=== PATIENT | female | born 1990 | race Caucasian/White ===

== ENCOUNTER 2019-08-24 23:14 | Emergency (ER) | payer MEDICAID ==
--- NOTE | 2019-08-24 23:21 | ERPHSYRPT ---
- History of Present Illness Time Seen by Provider: 08/24/19 23:16 Source: patient, police Exam Limitations: no limitations Physician History: A 29-year-old white female who was brought into the emergency department for medical clearance for transfer to correction. Patient has no specific complaints. Patient was brought into the emergency department because there was initial discussion with the Police Department that the patient had stated that she was going to run out in front of traffic. However, patient denies ever saying this and she states she has not homicidal or suicidal. She states she does not want to kill herself. Patient is being taken to the correction because of an outstanding warrant. Patient denies chest pain she denies shortness of breath she denies abdominal pain. She has no urinary complaints and has no vaginal discharge. She has no nausea vomiting or diarrhea. Timing/Duration: today Severity: mild Associated Symptoms: denies symptoms Travel Risk - International Travel Have you traveled outside of the country in past 3 weeks: No - Coronavirus Screening Are you exhibiting any of the following symptoms?: No Close contact with a COVID-19 positive Pt in past 14-21 Days: No - Review of Systems Constitutional: No Symptoms Eyes: No Symptoms Ears, Nose, & Throat: No Symptoms Respiratory: No Symptoms Cardiac: No Symptoms Abdominal/Gastrointestinal: No Symptoms Genitourinary Symptoms: No Symptoms Musculoskeletal: No Symptoms Skin: No Symptoms Neurological: No Symptoms Psychological: Drug Abuse (History in the past), No Suicidal Ideations, No Homic idal Ideations Endocrine: No Symptoms Hematologic/Lymphatic: No Symptoms Immunological/Allergic: No Symptoms All Other Systems: Reviewed and Negative - Past Medical History Pertinent Past Medical History: Yes Neurological History: No Pertinent History ENT History: No Pertinent History Cardiac History: No Pertinent History Respiratory History: No Pertinent History Endocrine Medical History: No Pertinent History Musculoskeletal History: No Pertinent History GI Medical History: No Pertinent History History: No Pertinent History Psycho-Social History: No Pertinent History Female Reproductive Disorders: No Pertinent History - Past Surgical History Past Surgical History: Yes Neuro Surgical History: No Pertinent History Cardiac: No Pertinent History Respiratory: No Pertinent History Gastrointestinal: No Pertinent History Genitourinary: No Pertinent History Musculoskeletal: No Pertinent History Female Surgical History: No Pertinent History - Physical Exam General Appearance: no apparent distress, alert, No anxiety Eye Exam: PERRL/EOMI, eyes nml inspection Ears, Nose, Throat Exam: normal ENT inspection, moist mucous membranes Neck Exam: normal inspection, non-tender, supple, full range of motion Respiratory Exam: normal breath sounds, lungs clear, airway intact, No chest tenderness, No respiratory distress Cardiovascular Exam: regular rate/rhythm, normal heart sounds, normal peripheral pulses Gastrointestinal/Abdomen Exam: soft, normal bowel sounds, No tenderness Pelvic Exam: not done Rectal Exam: not done Back Exam: normal inspection, normal range of motion, No CVA tenderness, No vertebral tenderness Extremity Exam: normal inspection, normal range of motion, pelvis stable Neurologic Exam: alert, oriented x 3, cooperative, natural sciences professor II-XII nml as tested, normal mood/affect, nml cerebellar function, nml station & gait, sensation nml Skin Exam: normal color, warm, dry Lymphatic Exam: No adenopathy SpO2 Interpretation: normal O2 Delivery: Room Air - Course Nursing assessment & vital signs reviewed: Yes - Progress Progress: unchanged Counseled pt/family regarding: diagnosis, need for follow-up - Departure Departure Disposition: Nursing Home/Half-Way Clinical Impression: Medical clearance for incarceration Condition: Stable Critical Care Time: No
[2019-08-25 01:02] VITALS: BP 122/82; PULSE 71; O2SAT 97
== END 2019-08-25 01:00 | disposition home or self-care (01) ==
LOC: ED 23:14
DX: Z02.89 Encounter for other administrative examinations (principal)
CPT/HCPCS: 84703; 99283

== ENCOUNTER 2021-05-04 23:15 | Emergency (ER) | payer OTHER ==
--- NOTE | 2021-05-04 23:34 | ERPHSYRPT ---
- History of Present Illness Time Seen by Provider: 05/04/21 23:34 Source: patient Exam Limitations: no limitations Physician History: This is a 30-year-old white female patient of Dr. Casillas who has significant anxiety issues on Effexor and is also on Adderall. Approximately 2 weeks ago, the patient's Effexor was doubled in dosing per patient. Since that time patient has been more anxious, she is having palpitations, she is concerned about possible blood clots in her leg, and she has dizziness intermittently. Patient does not have chest pain. She is not short of breath. Patient states she has a history of sinus tachycardia. Timing/Duration: week(s) Severity: mild (1 to 2 weeks to moderate) Associated Symptoms: other (Dizziness, palpitations), No shortness of breath, No chest pain Allergies/Adverse Reactions: No Known Drug Allergies Allergy (Verified 05/04/21 23:28) Home Medications: Dextroamphetamine/Amphetamine [Adderall 10 mg Tablet] 20 mg PO BID 05/04/21 [History] Venlafaxine HCl [Venlafaxine HCl ER] 150 mg PO DAILY 05/04/21 [History] Hx Tetanus, Diphtheria Vaccination/Date Given: Yes Hx Influenza Vaccination/Date Given: Yes Travel Risk - International Travel Have you traveled outside of the country in past 3 weeks: No - Coronavirus Screening Are you exhibiting any of the following symptoms?: No Close contact with a COVID-19 positive Pt in past 14-21 Days: No - Review of Systems Constitutional: No Symptoms Eyes: No Symptoms Ears, Nose, & Throat: No Symptoms Respiratory: No Symptoms, No Dyspnea Cardiac: Palpitations, No Chest Pain Abdominal/Gastrointestinal: No Symptoms Genitourinary Symptoms: No Symptoms Musculoskeletal: No Symptoms Skin: No Symptoms Neurological: No Symptoms Psychological: No Symptoms, Anxiety Endocrine: No Symptoms Hematologic/Lymphatic: No Symptoms Immunological/Allergic: No Symptoms All Other Systems: Reviewed and Negative - Past Medical History Pertinent Past Medical History: Yes Neurological History: No Pertinent History ENT History: No Pertinent History Cardiac History: No Pertinent History Respiratory History: No Pertinent History Endocrine Medical History: No Pertinent History Musculoskeletal History: No Pertinent History GI Medical History: No Pertinent History History: No Pertinent History Psycho-Social History: No Pertinent History Female Reproductive Disorders: No Pertinent History - Past Surgical History Past Surgical History: Yes Neuro Surgical History: No Pertinent History Cardiac: No Pertinent History Respiratory: No Pertinent History Gastrointestinal: No Pertinent History Genitourinary: No Pertinent History Musculoskeletal: No Pertinent History Female Surgical History: No Pertinent History Other Surgical History: Laproscopic sx on uterus - Social History Smoking Status: Never smoker Exposure to second hand smoke: No Drug Use: none Patient Lives Alone: Yes - Nursing Vital Signs Nursing Vital Signs: Initial Vital Signs Temperature 98.5 F 05/04/21 23:30 Pulse Rate 106 H 05/04/21 23:30 Respiratory Rate 18 05/04/21 23:30 Blood Pressure 151/85 05/04/21 23:30 O2 Sat by Pulse Oximetry 99 05/04/21 23:30 Pain Scale Pain Intensity 6 - Physical Exam General Appearance: no apparent distress, alert, anxiety Eye Exam: PERRL/EOMI Ears, Nose, Throat Exam: normal ENT inspection, moist mucous membranes Neck Exam: normal inspection, non-tender, supple, full range of motion Respiratory Exam: normal breath sounds, lungs clear, airway intact, No chest tenderness, No respiratory distress Cardiovascular Exam: tachycardia (Mild) Gastrointestinal/Abdomen Exam: soft, normal bowel sounds, No tenderness Pelvic Exam: not done Rectal Exam: not done Back Exam: normal inspection, normal range of motion, No CVA tenderness, No vertebral tenderness Extremity Exam: normal inspection, normal range of motion, pelvis stable, other (Strong palpable pedal pulses bilaterally) Neurologic Exam: alert, oriented x 3, cooperative, precision grinder II-XII nml as tested, nml cerebellar function, nml station & gait, sensation nml, other (Anxious) Skin Exam: normal color, warm, dry Lymphatic Exam: No adenopathy O2 Delivery: Room Air - Course Nursing assessment & vital signs reviewed: Yes EKG Interpreted by Me: RATE (105), Sinus Tach, Left [place] Deviation (Borderline), Other (Today's EKG states consider inferior injury with question of ST elevation in the inferior leads. However, I do not see ST elevation in the inferior leads. Will repeat EKG.) Ordered Tests: Active Orders 24 hr Category Date Time Status D-DIMER QUANTITATIVE Stat Lab 05/05/21 00:25 Completed TROPONIN Q3H Lab 05/05/21 00:25 Completed TROPONIN Q3H Lab 05/05/21 03:15 Ordered TROPONIN Q3H Lab 05/05/21 06:15 Ordered TROPONIN Q3H Lab 05/05/21 09:15 Ordered TROPONIN Q3H Lab 05/05/21 12:15 Ordered Medication Summary Discontinued Medications Generic Name Dose Route Start Last Admin Trade Name Melvina PRN Reason Stop Dose Admin Lorazepam 1 mg 05/05/21 00:11 05/05/21 00:15 Lorazepam 2 Mg/1 Ml 2 Mg Vial IM 05/05/21 00:12 1 mg STAT ONE Administration Lorazepam Confirm 05/05/21 00:13 Lorazepam 2 Mg/1 Ml 2 Mg Vial Administered 05/05/21 00:14 Dose 2 mg .ROUTE .STK-MED ONE Lab/Rad Data: Laboratory Results 05/05/21 05/05/21 Range/Units 00:25 00:25 D-Dimer 248 (215-500) ng/mL Troponin I < 0.012 (0.000-0.034) ng/mL - Progress Progress: improved, pain not gone completely, re-examined Progress Note: 05/05/21 01:07 Repeat twelve-lead EKG at 1:03 AM on 05/05/2021 shows normal sinus rhythm with heart rate of 96 bpm. Left axis deviation. There is no acute ischemic changes noted. ST elevation is probably normal with early repolarization pattern. Patient has no chest pain and is not short of breath. Counseled pt/family regarding: lab results, diagnosis, need for follow-up - Departure Departure Disposition: Home Clinical Impression: High blood pressure Condition: Stable Critical Care Time: No Referrals: CECILIA CASILLAS [Primary Care Provider] - Follow up/PCP as directed Additional Instructions: Do not stop your Effexor completely. You may continue the same new dosing over the weekend and then call Dr. Casillas and inform him of your concerns on 05/07/2021. Or decrease your Effexor back to the normal dose you are on prior to the change then call Dr. Madrid's office on 05/07/2021 for further recommendations and management
[2021-05-05] MEDS ORDERED: Ativan 2 MG/1 ML VIAL IM ONE (00:11)
[2021-05-05] MEDS ORDERED: Ativan 2 MG/1 ML VIAL ONE (00:13)
[2021-05-05 01:09] VITALS: BP 134/84; O2SAT 96
[2021-05-05 01:10] VITALS: PULSE 103
== END 2021-05-05 01:21 | disposition home or self-care (01) ==
LOC: ED 23:15
DX: R03.0 Elevated blood-pressure reading, without diagnosis of hypertension (principal); F41.9 Anxiety disorder, unspecified; R00.2 Palpitations; R42 Dizziness and giddiness; Z79.899 Other long term (current) drug therapy
CPT/HCPCS: 36415; 84484; 85379; 93005; 96372; 99284; J2060

== ENCOUNTER 2021-05-16 15:06 | Emergency (ER) | payer OTHER ==
--- NOTE | 2021-05-16 15:45 | ERPHSYRPT ---
- History of Present Illness Time Seen by Provider: 05/16/21 15:11 Historian: patient Exam Limitations: no limitations Patient Subjective Stated Complaint: " I had a ERCP on Friday in [facility] by Dr. Paulino and I started having abdominal pain off and on since then. And now my pain is so bad". Triage Nursing Assessment: Pt presents to ER with complaints of LUQ pain that radiates to left flank region. Pt states she believes it is her pancreas. Pt had ERCP on Friday and has intermittent pain ever since that has continously got worse. Pt is alert and oriented x3. Skin is flushed, warm, and dry. Respirations are easy. Abdomen is soft but tender upon exam. Pt complains about nausea and stated vomited green bile 2 days ago. Pt had regular BM today. Physician History: 30 years old female with history of alcohol abuse in the past and recent issues with CBD, ERCP with stent placement last week presented in the ER with increasing pain upper abdomen with nausea and dry heaving for the last 5 days. Pain is moderate to severe intensity, sharp nature without any significant aggravating or relieving factors. No fever chills or abdominal distention reported. Timing/Duration: day(s) (5), gradual onset, worse Activities at Onset: rest Quality: sharpness Abdominal Pain Onset Location: LUQ, LLQ, epigastric Pain Radiation: back Severity of Pain-Max: moderate Severity of Pain-Current: moderate Modifying Factors: Improves With: nothing Associated Symptoms: nausea Previous symptoms: no prior history Allergies/Adverse Reactions: No Known Drug Allergies Allergy (Verified 05/16/21 15:30) Home Medications: Dextroamphetamine/Amphetamine [Adderall 10 mg Tablet] 20 mg PO BID 05/04/21 [History] Venlafaxine HCl [Venlafaxine HCl ER] 150 mg PO DAILY 05/04/21 [History] Hx Tetanus, Diphtheria Vaccination/Date Given: No Hx Influenza Vaccination/Date Given: No Hx Pneumococcal Vaccination/Date Given: No Immunizations Up to Date: No Travel Risk - International Travel Have you traveled outside of the country in past 3 weeks: No - Coronavirus Screening Are you exhibiting any of the following symptoms?: No Close contact with a COVID-19 positive Pt in past 14-21 Days: No - Vaccine Status Have you recieved a Covid-19 vaccination: No - Review of Systems Constitutional: No Symptoms Eyes: No Symptoms Ears, Nose, & Throat: No Symptoms Respiratory: No Symptoms Cardiac: No Symptoms Abdominal/Gastrointestinal: Abdominal Pain, Nausea Genitourinary Symptoms: No Symptoms Musculoskeletal: No Symptoms Skin: No Symptoms Neurological: No Symptoms Psychological: No Symptoms Endocrine: No Symptoms Hematologic/Lymphatic: No Symptoms Immunological/Allergic: No Symptoms - Past Medical History Pertinent Past Medical History: Yes Neurological History: No Pertinent History ENT History: No Pertinent History Cardiac History: No Pertinent History, Other Respiratory History: No Pertinent History Endocrine Medical History: No Pertinent History Musculoskeletal History: No Pertinent History GI Medical History: Pancreatitis History: No Pertinent History Psycho-Social History: Anxiety, Attention Deficit Disorder, Depression Female Reproductive Disorders: No Pertinent History - Past Surgical History Past Surgical History: Yes Neuro Surgical History: No Pertinent History Cardiac: No Pertinent History Respiratory: No Pertinent History Gastrointestinal: No Pertinent History Genitourinary: No Pertinent History Musculoskeletal: No Pertinent History Female Surgical History: No Pertinent History Other Surgical History: Laproscopic sx on uterus, ERCP - Social History Smoking Status: Current every day smoker Exposure to second hand smoke: No Drug Use: none Patient Lives Alone: No - Female History Hx Last Menstrual Period: 05/11/21 Hx Now: No - Nursing Vital Signs Nursing Vital Signs: Initial Vital Signs Temperature 97.8 F 05/16/21 15:23 Pulse Rate 101 H 05/16/21 15:23 Respiratory Rate 22 05/16/21 15:23 Blood Pressure 144/74 05/16/21 15:23 O2 Sat by Pulse Oximetry 100 05/16/21 15:23 Pain Scale Pain Intensity 2 - Physical Exam General Appearance: no apparent distress, alert Eye Exam: PERRL/EOMI Ears, Nose, Throat Exam: normal ENT inspection, pharynx normal Neck Exam: normal inspection, non-tender, supple, full range of motion Respiratory Exam: normal breath sounds, lungs clear Cardiovascular Exam: regular rate/rhythm, normal heart sounds Gastrointestinal/Abdomen Exam: soft, normal bowel sounds, tenderness (upper abd pain ), guarding Back Exam: normal inspection, normal range of motion Extremity Exam: normal inspection, normal range of motion Neurologic Exam: alert, oriented x 3, cooperative, fountain supervisor II-XII nml as tested Skin Exam: normal color SpO2 Interpretation: normal SpO2: 100 O2 Delivery: Room Air Ordered Tests: Active Orders 24 hr Category Date Time Status IV Insertion STAT Care 05/16/21 15:41 Active NPO (ED) STAT Care 05/16/21 15:41 Active ABDOMEN AND PELVIS W CONTRAST [CT] Stat Exams 05/16/21 16:47 Completed AMYLASE Stat Lab 05/16/21 15:45 Completed CBC W DIFF Stat Lab 05/16/21 15:45 Completed CMP Stat Lab 05/16/21 15:45 Completed LIPASE Stat Lab 05/16/21 15:45 Completed Lactic Acid Stat Lab 05/16/21 15:53 Completed PROTIME WITH INR Stat Lab 05/16/21 15:45 Completed UA W/RFX UR CULTURE Stat Lab 05/16/21 15:47 Completed Medication Summary Discontinued Medications Generic Name Dose Route Start Last Admin Trade Name Freq PRN Reason Stop Dose Admin Sodium Chloride 1,000 mls @ 999 mls/hr 05/16/21 15:41 05/16/21 16:53 Sodium Chloride 0.9% 1000 Ml IV 05/16/21 16:41 Infused .Q1H1M STA Infusion Sodium Chloride Confirm 05/16/21 15:48 Sodium Chloride 0.9% 1000 Ml Administered 05/16/21 15:49 Dose 1,000 mls @ ud .ROUTE .STK-MED ONE Morphine Sulfate 4 mg 05/16/21 15:41 05/16/21 15:52 Morphine Sulfate 4 Mg/Ml Injection IV 05/16/21 15:42 4 mg STAT ONE Administration Morphine Sulfate Confirm 05/16/21 15:48 Morphine Sulfate 4 Mg/Ml Injection Administered 05/16/21 15:49 Dose 4 mg .ROUTE .STK-MED ONE Ondansetron HCl 4 mg 05/16/21 15:41 05/16/21 15:52 Ondansetron Hcl 4 Mg/2 Ml Vial IV 05/16/21 15:42 4 mg STAT ONE Administration Ondansetron HCl Confirm 05/16/21 15:47 Ondansetron Hcl 4 Mg/2 Ml Vial Administered 05/16/21 15:48 Dose 4 mg .ROUTE .STK-MED ONE Pantoprazole Sodium 40 mg 05/16/21 15:41 05/16/21 15:52 Pantoprazole 40 Mg Vial IV 05/16/21 15:42 40 mg STAT ONE Administration Pantoprazole Sodium Confirm 05/16/21 15:47 Pantoprazole 40 Mg Vial Administered 05/16/21 15:48 Dose 40 mg IV .STK-MED ONE Lab/Rad Data: Laboratory Result Diagrams 05/16/21 15:45 05/16/21 15:45 Laboratory Results 05/16/21 05/16/21 05/16/21 Range/Units 15:53 15:47 15:45 WBC (4.0-10.5) K/mm3 RBC (4.1-5.4) M/mm3 Hgb (12.0-16.0) gm/dl Hct (35-47) % MCV (78-100) fl MCH (26-32) pg MCHC (32-36) g/dl RDW (11.5-14.0) % Plt Count (150-450) K/mm3 MPV (7.5-11.0) fl Gran % (36.0-66.0) % Eos # (Auto) (0-0.5) Absolute Lymphs (auto) (1.0-4.6) Absolute Monos (auto) (0.0-1.3) Lymphocytes % (24.0-44.0) % Monocytes % (0.0-12.0) % Eosinophils % (0.00-5.0) % Basophils % (0.0-0.4) % Absolute Granulocytes (1.4-6.9) Basophils # (0-0.4) PT 12.9 H (9.4-12.5) SECONDS INR 1.09 (0.8-3.0) Sodium (137-145) mmol/L Potassium (3.5-5.1) mmol/L Chloride (98-107) mmol/L Carbon Dioxide (22-30) mmol/L Anion Gap (5-15) MEQ/L BUN (7-17) mg/dL Creatinine (0.52-1.04) mg/dL Estimated GFR ML/MIN Glucose (74-106) mg/dL Lactic Acid 1.0 (0.4-2.0) Calcium (8.4-10.2) mg/dL Total Bilirubin (0.2-1.3) mg/dL AST (14-36) U/L ALT (0-35) U/L Alkaline Phosphatase (38-126) U/L Serum Total Protein (6.3-8.2) g/dL Albumin (3.5-5.0) g/dL Amylase (30-110) U/L Lipase (23-300) U/L Urine Color YELLOW (YELLOW) Urine Appearance CLEAR (CLEAR) Urine pH 6.5 (5-6) Ur Specific Spencer 1.025 (1.005-1.025) Urine Protein NEGATIVE (Negative) Urine Ketones NEGATIVE (NEGATIVE) Urine Blood NEGATIVE (0-5) Colton/ul Urine Nitrite NEGATIVE (NEGATIVE) Urine Bilirubin NEGATIVE (NEGATIVE) Urine Urobilinogen 0.2 (0-1) mg/dL Ur Leukocyte Esterase NEGATIVE (NEGATIVE) Urine WBC (Auto) 0-2 (0-5) /HPF Urine RBC (Auto) NONE (0-2) /HPF U Epithel Cells (Auto) RARE (FEW) /HPF Urine Bacteria (Auto) NONE (NEGATIVE) /HPF Urine Mucus (Auto) SLIGHT (NEGATIVE) /HPF Urine Culture Reflexed NO (NO) Urine Glucose NEGATIVE (NEGATIVE) mg/dL 05/16/21 05/16/21 Range/Units 15:45 15:45 WBC 13.6 H (4.0-10.5) K/mm3 RBC 4.32 (4.1-5.4) M/mm3 Hgb 14.0 (12.0-16.0) gm/dl Hct 42.3 (35-47) % MCV 97.9 (78-100) fl MCH 32.4 H (26-32) pg MCHC 33.1 (32-36) g/dl RDW 12.1 (11.5-14.0) % Plt Count 317 (150-450) K/mm3 MPV 9.6 (7.5-11.0) fl Gran % 75.1 H (36.0-66.0) % Eos # (Auto) 0.11 (0-0.5) Absolute Lymphs (auto) 2.57 (1.0-4.6) Absolute Monos (auto) 0.69 (0.0-1.3) Lymphocytes % 18.9 L (24.0-44.0) % Monocytes % 5.1 (0.0-12.0) % Eosinophils % 0.8 (0.00-5.0) % Basophils % 0.1 (0.0-0.4) % Absolute Granulocytes 10.21 H (1.4-6.9) Basophils # 0.02 (0-0.4) PT (9.4-12.5) SECONDS INR (0.8-3.0) Sodium 135 L (137-145) mmol/L Potassium 4.7 (3.5-5.1) mmol/L Chloride 105 (98-107) mmol/L Carbon Dioxide 21 L (22-30) mmol/L Anion Gap 14.2 (5-15) MEQ/L BUN 8 (7-17) mg/dL Creatinine 0.55 (0.52-1.04) mg/dL Estimated GFR > 60.0 ML/MIN Glucose 90 (74-106) mg/dL Lactic Acid (0.4-2.0) Calcium 9.7 (8.4-10.2) mg/dL Total Bilirubin 0.50 (0.2-1.3) mg/dL AST 22 (14-36) U/L ALT 14 (0-35) U/L Alkaline Phosphatase 49 (38-126) U/L Serum Total Protein 7.3 (6.3-8.2) g/dL Albumin 4.3 (3.5-5.0) g/dL Amylase 54 (30-110) U/L Lipase 147 (23-300) U/L Urine Color (YELLOW) Urine Appearance (CLEAR) Urine pH (5-6) Ur Specific Spencer (1.005-1.025) Urine Protein (Negative) Urine Ketones (NEGATIVE) Urine Blood (0-5) Colton/ul Urine Nitrite (NEGATIVE) Urine Bilirubin (NEGATIVE) Urine Urobilinogen (0-1) mg/dL Ur Leukocyte Esterase (NEGATIVE) Urine WBC (Auto) (0-5) /HPF Urine RBC (Auto) (0-2) /HPF U Epithel Cells (Auto) (FEW) /HPF Urine Bacteria (Auto) (NEGATIVE) /HPF Urine Mucus (Auto) (NEGATIVE) /HPF Urine Culture Reflexed (NO) Urine Glucose (NEGATIVE) mg/dL - Progress Progress: improved Progress Note: 05/16/21 17:51 30 years old is evaluated for upper abdominal pain recent stent placement. She is given fluids and pain medications, on reevaluation her pain is resolved. She is also given Protonix. Has a white count of 13, grossly unremarkable chemistries e. I have obtained CT abdomen pelvis which is negative for any acute finding and stent is well in place and seems patent. I believe patient jalen diaz have some element of gastritis/acid reflux, will start her on Protonix, recommended Tylenol and avoiding NSAIDs and outpatient follow-up. Discussed signs symptoms of worsening needing return to ER which she seems understanding. Counseled pt/family regarding: lab results, diagnosis, need for follow-up, rad results - Departure Departure Disposition: Home Clinical Impression: Upper abdominal pain Condition: Stable Critical Care Time: No Referrals: CECILIA MILLS [Primary Care Provider] - Follow Up with PCP/3 days Instructions: Acute Abdomen (Belly Pain) Additional Instructions: Drink plenty of fluids to keep yourself well-hydrated. Follow-up with primary care/GI at [facility] for reevaluation. Return to ER for worsening pain, vomiting/fever chills etc. Prescriptions: PANTOPRAZOLE 40 mg Tablet [Protonix 40MG Tablet] 40 mg PO QAM 30 Days #30 tab
[2021-05-16] MEDS ORDERED: PROTONIX 40 MG IV IV ONE (15:47)
[2021-05-16] MEDS ORDERED: Zofran 4 MG/2 ML VIAL ONE (15:47)
[2021-05-16] MEDS ORDERED: Sodium Chloride 0.9% 1000 ML 1,000 ML ONE (15:48)
[2021-05-16] MEDS ORDERED: MORPHINE SULFATE 4 MG INJ ONE (15:48)
[2021-05-16] MEDS: MORPHINE SULFATE 4 MG INJ IV ONE (15:52)
[2021-05-16] MEDS: PROTONIX 40 MG IV IV ONE (15:52)
[2021-05-16] MEDS: Zofran 4 MG/2 ML VIAL IV ONE (15:52)
[2021-05-16] MEDS: Sodium Chloride 0.9% 1000 ML 1,000 ML IV STA (15:52)
[2021-05-16 15:58] LABS: Absolute Neutrophil Ct (ANC) 10.21 (1.4-6.9); Basophil (Absolute #) 0.02 (0-0.4); Eosinophil % 0.8 % (0.00-5.0); Eosinophil (Absolute #) 0.11 (0-0.5); Hematocrit 42.3 % (35-47); Lymphocyte (Absolute #) 2.57 (1.0-4.6); Lymphocytes % 18.9 % (24.0-44.0); Mean Cell Volume 97.9 fl (78-100); Mean Corpuscular Hemoglobin 32.4 pg (26-32); Mean Corpuscular Hgb Concent. 33.1 g/dl (32-36); Mean Platelet Volume 9.6 fl (7.5-11.0); Monocyte (Absolute #) 0.69 (0.0-1.3); Monocytes % 5.1 % (0.0-12.0); Neutrophil % 75.1 % (36.0-66.0); Platelet Count 317 K/mm3 (150-450); Red Blood Count 4.32 M/mm3 (4.1-5.4); Red Cell Distribution Width 12.1 % (11.5-14.0); White Blood Count 13.6 K/mm3 (4.0-10.5)
[2021-05-16 16:07] LABS: Epithelial Cells RARE /HPF (FEW); Mucus SLIGHT /HPF (NEGATIVE); WBC 0-2 /HPF (0-5)
[2021-05-16 16:08] LABS: INR 1.09 (0.8-3.0); PROTIME 12.9 SECONDS (9.4-12.5)
[2021-05-16 16:12] LABS: Appearance CLEAR (CLEAR); Bilirubin NEGATIVE (NEGATIVE); Blood NEGATIVE Ery/ul (0-5); Glucose NEGATIVE (NEGATIVE); Ketones NEGATIVE (NEGATIVE); Leukocyte Esterase NEGATIVE (NEGATIVE); Nitrite NEGATIVE (NEGATIVE); Ph 6.5 (5-6); Protein,Urine Dip NEGATIVE (Negative); Specific Gravity 1.025 (1.005-1.025); Urobilinogen 0.2 mg/dL (0-1)
[2021-05-16 16:13] LABS: ADD URINE CULTURE? NO (NO)
[2021-05-16 16:15] LABS: ALBUMIN 4.3 g/dL (3.5-5.0); ALKALINE PHOSPHATASE 49 U/L (38-126); AMYLASE 54 U/L (30-110); ANION GAP 14.2 MEQ/L (5-15); BLOOD UREA NITROGEN 8 mg/dL (7-17); CHLORIDE 105 mmol/L (98-107); Calcium 9.7 mg/dL (8.4-10.2); Carbon Dioxide 21 mmol/L (22-30); Creatinine 1 0.55 mg/dL (0.52-1.04); EST GLOMERULAR FILTRATION RATE > 60.0 ML/MIN; Glucose 90 mg/dL (74-106); LIPASE 147 U/L (23-300); Potassium 4.7 mmol/L (3.5-5.1); SGOT/AST 22 U/L (14-36); SGPT/ALT 14 U/L (0-35); SODIUM 135 mmol/L (137-145); Total Protein 7.3 g/dL (6.3-8.2)
--- NOTE | 2021-05-16 17:05 | XRAY ---
Indication: Left upper quadrant pain. Status post pancreatic stent placement. Chronic pancreatitis. Multiple contiguous axial images obtained through the abdomen and pelvis using 80 cc Isovue 370 contrast. Comparison: None Lung bases demonstrates minimal dependent atelectasis. No infiltrate or effusion. Heart not enlarged. Noncontrasted stomach and bowel loops nonobstructed with normal appendix. No free fluid/air. Pancreatic stent in good position with pigtail portion in the duodenum. Remaining liver, gallbladder, pancreas, spleen, adrenal glands, kidneys, ureters, bladder, uterus, and aorta are unremarkable. No pathologic retroperitoneal lymphadenopathy. Osseous structures intact with mild lumbosacral junction degenerative disc disease. Impression: 1. Pancreatic stent in good position. 2. Remaining CT abdomen/pelvis with contrast exam is negative.
[2021-05-16 17:48] VITALS: BP 135/84; PULSE 84
[2021-05-16 17:55] VITALS: O2SAT 100
== END 2021-05-16 18:00 | disposition home or self-care (01) ==
LOC: ED 15:06
DX: R10.12 Left upper quadrant pain (principal); R10.11 Right upper quadrant pain; R10.13 Epigastric pain; R11.0 Nausea; Z79.899 Other long term (current) drug therapy; Z72.0 Tobacco use
CPT/HCPCS: 36000; 36415; 74177; 80053; 81001; 82150; 83605; 83690; 85025; 85610; 96374; 96375; 99284; J2270; J2405

== ENCOUNTER 2021-08-18 19:03 | Emergency (ER) | payer OTHER ==
[2021-08-18] MEDS ORDERED: Zofran 4 MG/2 ML VIAL IV ONE (19:42)
[2021-08-18] MEDS ORDERED: TORAdol 30 mg Injection IV ONE (19:42)
[2021-08-18] MEDS ORDERED: Sodium Chloride 0.9% 1000 ML 1,000 ML IV STA (19:42)
[2021-08-18] MEDS ORDERED: TORAdol 30 mg Injection ONE (19:45)
[2021-08-18] MEDS ORDERED: Sodium Chloride 0.9% 1000 ML 1,000 ML ONE (19:45)
[2021-08-18] MEDS ORDERED: Zofran 4 MG/2 ML VIAL ONE (19:45)
[2021-08-18 19:46] LABS: Absolute Neutrophil Ct (ANC) 10.39 x10^3/uL (1.4-6.9); Basophil (Absolute #) 0.01 x10^3/uL (0-0.4); Eosinophil % 0.1 % (0.00-5.0); Eosinophil (Absolute #) 0.01 x10^3/uL (0-0.5); Hematocrit 39.1 % (35-47); Hemoglobin 13.3 g/dL (12.0-16.0); Lymphocyte (Absolute #) 0.83 x10^3/uL (1.0-4.6); Lymphocytes % 6.5 % (24.0-44.0); Mean Cell Volume 94.4 fL (78-100); Mean Corpuscular Hemoglobin 32.1 pg (26-32); Mean Platelet Volume 9.6 fL (7.5-11.0); Monocytes % 11.7 % (0.0-12.0); Neutrophil % 81.4 % (36.0-66.0); Platelet Count 268 x10^3/uL (150-450); Red Blood Count 4.14 x10^6/uL (4.1-5.4); Red Cell Distribution Width 12.4 % (11.5-14.0); White Blood Count 12.8 x10^3/uL (4.0-10.5)
[2021-08-18 19:52] LABS: Bacteria FEW /HPF (NEGATIVE); Epithelial Cells FEW /HPF (FEW); Mucus SLIGHT /HPF (NEGATIVE); WBC >100 /HPF (0-5)
[2021-08-18 19:53] LABS: Appearance SLIGHTLY CLOUDY (CLEAR); Bilirubin NEGATIVE (NEGATIVE); Glucose NEGATIVE (NEGATIVE); Ketones LARGE-80 (NEGATIVE); Nitrite NEGATIVE (NEGATIVE); Ph 7.5 (5-6); Protein,Urine Dip 100 (Negative); RBC TRACE-INTACT Ery/ul (0-5); Specific Gravity 1.015 (1.005-1.025); Urobilinogen 0.2 mg/dL (0-1)
[2021-08-18 19:54] LABS: Dipstick done @ ? MAIN LAB; Urine Cultured Indicated? YES
--- NOTE | 2021-08-18 20:15 | ERPHSYRPT ---
- History of Present Illness Time Seen by Provider: 08/18/21 19:11 Patient Subjective Stated Complaint: pt states "My right lower back started hurting yesterday. I have chronic pancreatits and I wondered if it is making my kidney go back." Triage Nursing Assessment: pt ambulatory to bed by self, pt alert and oriented x3, pt c/o R sided flank pain since yesterday, pt has hx of chronic pancreatit is, pt did vomit yesterday but did not today, pt denies nausea or diarrhea, pt did mention that she hasn't had a bowel movement in week Physician History: 31 years old female with history of alcoholism currently in recovery, alcohol induced chronic pancreatitis presented to the ER with right flank/right lower back pain since yesterday with progressive worsening, moderate to severe sharp nature pain without associated nausea vomiting diarrhea. Denies any urinary symptoms. No fever or chills reported. Timing/Duration: yesterday, gradual onset, worse Activities at Onset: activity, rest Quality: sharpness Abdominal Pain Onset Location: epigastric, flank Pain Radiation: back Severity of Pain-Max: moderate Severity of Pain-Current: moderate Modifying Factors: Improves With: nothing Associated Symptoms: denies symptoms Allergies/Adverse Reactions: No Known Drug Allergies Allergy (Verified 08/18/21 19:16) Home Medications: Dextroamphetamine/Amphetamine [Adderall 10 mg Tablet] 20 mg PO BID 05/04/21 [History] Venlafaxine HCl [Venlafaxine HCl ER] 150 mg PO DAILY 05/04/21 [History] Hx Tetanus, Diphtheria Vaccination/Date Given: No Hx Influenza Vaccination/Date Given: No Hx Pneumococcal Vaccination/Date Given: No Immunizations Up to Date: Yes Travel Risk - International Travel Have you traveled outside of the country in past 3 weeks: No - Coronavirus Screening Are you exhibiting any of the following symptoms?: No Close contact with a COVID-19 positive Pt in past 14-21 Days: No - Vaccine Status Have you recieved a Covid-19 vaccination: No - Review of Systems Constitutional: No Symptoms Eyes: No Symptoms Ears, Nose, & Throat: No Symptoms Respiratory: No Symptoms Cardiac: No Symptoms Abdominal/Gastrointestinal: Abdominal Pain Genitourinary Symptoms: Flank Pain Musculoskeletal: Back Pain Skin: No Symptoms Neurological: No Symptoms Psychological: Anxiety Endocrine: No Symptoms Hematologic/Lymphatic: No Symptoms Immunological/Allergic: No Symptoms - Past Medical History Pertinent Past Medical History: Yes Neurological History: No Pertinent History ENT History: No Pertinent History Cardiac History: No Pertinent History, Other Respiratory History: No Pertinent History Endocrine Medical History: No Pertinent History Musculoskeletal History: No Pertinent History GI Medical History: Pancreatitis History: No Pertinent History Psycho-Social History: Anxiety, Attention Deficit Disorder, Depression Female Reproductive Disorders: No Pertinent History - Past Surgical History Past Surgical History: Yes Neuro Surgical History: No Pertinent History Cardiac: No Pertinent History Respiratory: No Pertinent History Gastrointestinal: No Pertinent History, Pancreatic Surgery Genitourinary: No Pertinent History Musculoskeletal: No Pertinent History Female Surgical History: No Pertinent History Other Surgical History: Laproscopic sx on uterus, ERCP - Social History Smoking Status: Current every day smoker Exposure to second hand smoke: No Drug Use: none Patient Lives Alone: No - Female History Hx Last Menstrual Period: 07/22/2021 Hx Now: (unkn) - Nursing Vital Signs Nursing Vital Signs: Initial Vital Signs Temperature 98.4 F 08/18/21 19:16 Pulse Rate 120 H 08/18/21 19:16 Respiratory Rate 18 08/18/21 19:16 Blood Pressure 142/78 08/18/21 19:16 O2 Sat by Pulse Oximetry 97 08/18/21 19:16 Pain Scale Pain Intensity 8 - Physical Exam General Appearance: no apparent distress, alert, anxiety Eye Exam: PERRL/EOMI Ears, Nose, Throat Exam: normal ENT inspection Neck Exam: normal inspection, supple, full range of motion Respiratory Exam: normal breath sounds, lungs clear Cardiovascular Exam: normal heart sounds, tachycardia Gastrointestinal/Abdomen Exam: soft, normal bowel sounds, tenderness (Right upper quadrant/flank/epigastrium area.), guarding (Right flank) Back Exam: normal inspection, normal range of motion, CVA tenderness (Right) Extremity Exam: normal inspection, normal range of motion Neurologic Exam: alert, oriented x 3, cooperative Skin Exam: normal color SpO2 Interpretation: normal SpO2: 97 O2 Delivery: Room Air Ordered Tests: Active Orders 24 hr Category Date Time Status ABDOMEN AND PELVIS W/0 CONTRAS [CT] Stat Exams 08/18/21 19:42 Taken AMYLASE Stat Lab 08/18/21 19:42 Completed CBC W DIFF Stat Lab 08/18/21 19:25 Completed CMP Stat Lab 08/18/21 19:42 Completed CULTURE,URINE Stat Lab 08/18/21 19:44 Received ETHYL ALCOHOL Stat Lab 08/18/21 19:20 Completed HCG,QUALITATIVE URINE Stat Lab 08/18/21 19:44 Completed LIPASE Stat Lab 08/18/21 19:42 Completed UA W/RFX CULTURE Stat Lab 08/18/21 19:44 Completed Medication Summary Discontinued Medications Generic Name Dose Route Start Last Admin Trade Name Melvina PRN Reason Stop Dose Admin Sodium Chloride 1,000 mls @ 999 mls/hr 08/18/21 19:42 08/18/21 20:50 Sodium Chloride 0.9% 1000 Ml IV 08/18/21 20:42 Infused .Q1H1M STA Infusion Sodium Chloride Confirm 08/18/21 19:45 Sodium Chloride 0.9% 1000 Ml Administered 08/18/21 19:46 Dose 1,000 mls @ ud .ROUTE .STK-MED ONE Ketorolac Tromethamine 30 mg 08/18/21 19:42 08/18/21 19:46 Ketorolac Tromethamine 30 Mg/Ml Inj IV 08/18/21 19:43 30 mg STAT ONE Administration Ketorolac Tromethamine Confirm 08/18/21 19:45 Ketorolac Tromethamine 30 Mg/Ml Inj Administered 08/18/21 19:46 Dose 30 mg .ROUTE .STK-MED ONE Levofloxacin 750 mg 08/18/21 21:21 Levofloxacin 250 Mg Tab PO 08/18/21 21:22 STAT ONE Ondansetron HCl 4 mg 08/18/21 19:42 08/18/21 19:46 Ondansetron Hcl 4 Mg/2 Ml Vial IV 08/18/21 19:43 4 mg STAT ONE Administration Ondansetron HCl Confirm 08/18/21 19:45 Ondansetron Hcl 4 Mg/2 Ml Vial Administered 08/18/21 19:46 Dose 4 mg .ROUTE .STK-MED ONE Lab/Rad Data: Laboratory Result Diagrams 08/18/21 19:25 08/18/21 19:42 Laboratory Results 08/18/21 08/18/21 08/18/21 Range/Units 19:44 19:44 19:42 WBC (4.0-10.5) x10^3/uL RBC (4.1-5.4) x10^6/uL Hgb (12.0-16.0) g/dL Hct (35-47) % MCV (78-100) fL MCH (26-32) pg MCHC (32-36) g/dL RDW (11.5-14.0) % Plt Count (150-450) x10^3/uL MPV (7.5-11.0) fL Gran % (36.0-66.0) % Immature Gran % (Auto) (0.00-0.4) % Nucleat RBC Rel Count (0.00-0.1) % Eos # (Auto) (0-0.5) x10^3/uL Immature Gran # (Auto) (0.00-0.03) x10^3u/L Absolute Lymphs (auto) (1.0-4.6) x10^3/uL Absolute Monos (auto) (0.0-1.3) x10^3/uL Absolute Nucleated RBC (0.00-0.01) x10^3u/L Lymphocytes % (24.0-44.0) % Monocytes % (0.0-12.0) % Eosinophils % (0.00-5.0) % Basophils % (0.0-0.4) % Absolute Granulocytes (1.4-6.9) x10^3/uL Basophils # (0-0.4) x10^3/uL Sodium 130 L (137-145) mmol/L Potassium 3.6 (3.5-5.1) mmol/L Chloride 97 L (98-107) mmol/L Carbon Dioxide 21 L (22-30) mmol/L Anion Gap 15.2 H (5-15) MEQ/L BUN 8 (7-17) mg/dL Creatinine 0.78 (0.52-1.04) mg/dL Estimated GFR > 60.0 ML/MIN Glucose 117 H (74-106) mg/dL Calcium 9.1 (8.4-10.2) mg/dL Total Bilirubin 0.90 (0.2-1.3) mg/dL AST 26 (14-36) U/L ALT 14 (0-35) U/L Alkaline Phosphatase 76 (38-126) U/L Serum Total Protein 7.5 (6.3-8.2) g/dL Albumin 4.0 (3.5-5.0) g/dL Amylase 59 (30-110) U/L Lipase 17 L (23-300) U/L Urinalys Dipstick Clnc MAIN LAB Urine Color YELLOW (YELLOW) Urine Appearance SLIGHTLY CLOUDY (CLEAR) Urine pH 7.5 (5-6) Ur Specific Riddle 1.015 (1.005-1.025) POC Urine Protein Conf 100 (Negative) Urine Ketones LARGE-80 (NEGATIVE) Urine Nitrite NEGATIVE (NEGATIVE) Urine Bilirubin NEGATIVE (NEGATIVE) Urine Urobilinogen 0.2 (0-1) mg/dL Urine Leukocytes MODERATE (NEGATIVE) Urine WBC (Auto) >100 (0-5) /HPF Urine RBC (Auto) 6-10 (0-2) /HPF U Epithel Cells (Auto) FEW (FEW) /HPF Urine Bacteria (Auto) FEW (NEGATIVE) /HPF Urine RBC TRACE-INTACT (0-5) Colton/ul Urine Mucus (Auto) SLIGHT (NEGATIVE) /HPF Ur Culture Indicated? YES Urine Glucose NEGATIVE (NEGATIVE) mg/dL Urine HCG, Qual NEGATIVE (Negative) Ethyl Alcohol (0-10) mg/dL 08/18/21 08/18/21 Range/Units 19:25 19:20 WBC 12.8 H (4.0-10.5) x10^3/uL RBC 4.14 (4.1-5.4) x10^6/uL Hgb 13.3 (12.0-16.0) g/dL Hct 39.1 (35-47) % MCV 94.4 (78-100) fL MCH 32.1 H (26-32) pg MCHC 34.0 (32-36) g/dL RDW 12.4 (11.5-14.0) % Plt Count 268 (150-450) x10^3/uL MPV 9.6 (7.5-11.0) fL Gran % 81.4 H (36.0-66.0) % Immature Gran % (Auto) 0.2 (0.00-0.4) % Nucleat RBC Rel Count 0.0 (0.00-0.1) % Eos # (Auto) 0.01 (0-0.5) x10^3/uL Immature Gran # (Auto) 0.03 (0.00-0.03) x10^3u/L Absolute Lymphs (auto) 0.83 L (1.0-4.6) x10^3/uL Absolute Monos (auto) 1.50 H (0.0-1.3) x10^3/uL Absolute Nucleated RBC 0.00 (0.00-0.01) x10^3u/L Lymphocytes % 6.5 L (24.0-44.0) % Monocytes % 11.7 (0.0-12.0) % Eosinophils % 0.1 (0.00-5.0) % Basophils % 0.1 (0.0-0.4) % Absolute Granulocytes 10.39 H (1.4-6.9) x10^3/uL Basophils # 0.01 (0-0.4) x10^3/uL Sodium (137-145) mmol/L Potassium (3.5-5.1) mmol/L Chloride (98-107) mmol/L Carbon Dioxide (22-30) mmol/L Anion Gap (5-15) MEQ/L BUN (7-17) mg/dL Creatinine (0.52-1.04) mg/dL Estimated GFR ML/MIN Glucose (74-106) mg/dL Calcium (8.4-10.2) mg/dL Total Bilirubin (0.2-1.3) mg/dL AST (14-36) U/L ALT (0-35) U/L Alkaline Phosphatase (38-126) U/L Serum Total Protein (6.3-8.2) g/dL Albumin (3.5-5.0) g/dL Amylase (30-110) U/L Lipase (23-300) U/L Urinalys Dipstick Clnc Urine Color (YELLOW) Urine Appearance (CLEAR) Urine pH (5-6) Ur Specific Riddle (1.005-1.025) POC Urine Protein Conf (Negative) Urine Ketones (NEGATIVE) Urine Nitrite (NEGATIVE) Urine Bilirubin (NEGATIVE) Urine Urobilinogen (0-1) mg/dL Urine Leukocytes (NEGATIVE) Urine WBC (Auto) (0-5) /HPF Urine RBC (Auto) (0-2) /HPF U Epithel Cells (Auto) (FEW) /HPF Urine Bacteria (Auto) (NEGATIVE) /HPF Urine RBC (0-5) Colton/ul Urine Mucus (Auto) (NEGATIVE) /HPF Ur Culture Indicated? Urine Glucose (NEGATIVE) mg/dL Urine HCG, Qual (Negative) Ethyl Alcohol < 10 (0-10) mg/dL - Progress Progress: improved, re-examined Progress Note: 08/18/21 21:22 31 years old is evaluated for right flank pain. She is given Toradol for symptomatic relief and a fluid bolus, on reevaluation feeling better. She has a white count of 12.8, chemistry profile showed normal renal functions and does have UTI. CT finding consistent with acute pyelonephritis. She is offered observation admission with IV antibiotic but patient does not want to stay in the hospital at all. She prefers to go home and would return if has any worsening. I would start her on Levaquin and have her outpatient follow-up with primary care on Friday. Discussed signs symptoms of worsening needing return to ER which she seems understanding. Stable for discharge. Counseled pt/family regarding: lab results, diagnosis, need for follow-up, rad results, smoking cessation - Departure Departure Disposition: Home Clinical Impression: Acute pyelonephritis, Dehydration Condition: Stable Critical Care Time: No Referrals: CECILIA MILLS [Primary Care Provider] - Follow Up with PCP/3 days Instructions: Kidney Infection (DC) Additional Instructions: Take Tylenol/ibuprofen as needed for pain. Drink plenty of fluids to keep yourself well-hydrated. Do not drink alcohol. Continue with antibiotics. Follow-up with primary care for reevaluation in 3 days. Return to ER for intractable pain or if develop vomiting/fever chills/difficulty urination etc. Prescriptions: Ibuprofen 600 mg PO Q6HPRN PRN 10 Days #20 tablet PRN Reason: Pain Levofloxacin [Levaquin 500 MG Tablet] 500 mg PO DAILY #7 tablet
[2021-08-18 20:16] LABS: ALKALINE PHOSPHATASE 76 U/L (38-126); AMYLASE 59 U/L (30-110); ANION GAP 15.2 MEQ/L (5-15); BLOOD UREA NITROGEN 8 mg/dL (7-17); CHLORIDE 97 mmol/L (98-107); Calcium 9.1 mg/dL (8.4-10.2); Carbon Dioxide 21 mmol/L (22-30); Creatinine 1 0.78 mg/dL (0.52-1.04); EST GLOMERULAR FILTRATION RATE > 60.0 ML/MIN; Glucose 117 mg/dL (74-106); LIPASE 17 U/L (23-300); Potassium 3.6 mmol/L (3.5-5.1); SGOT/AST 26 U/L (14-36); SGPT/ALT 14 U/L (0-35); SODIUM 130 mmol/L (137-145); Total Protein 7.5 g/dL (6.3-8.2)
[2021-08-18] MEDS ORDERED: Levofloxacin 250MG Tablet PO ONE (21:21)
[2021-08-18] MEDS ORDERED: Levofloxacin 250MG Tablet ONE (21:27)
--- NOTE | 2021-08-18 21:42 | XRAY ---
Indication: Right flank pain. Last bowel movement one week ago. History of chronic necrotizing pancreatitis, endometriosis, and uterine fibroids. Multiple contiguous axial images obtained through the abdomen and pelvis without contrast. Comparison: May 16, 2021. Lung bases again demonstrates dependent atelectasis more than before. Heart not enlarged. Right kidney is now moderately edematous with perinephric stranding without renal calculus. Findings presumed inflammatory/infectious. Right ureter is also prominent up to 9 mm possibly from recent passage of calculus. No free fluid/air. Noncontrasted stomach and bowel loops nonobstructed. Normal air-filled appendix. Remaining liver, gallbladder, pancreas, spleen, adrenal glands, kidneys, ureters, bladder, uterus, and aorta are unremarkable for noncontrast exam. Osseous structures intact again with mild lumbosacral junction degenerative disc disease. Impression: New right renal edema with perinephric stranding. No renal calculus but prominent right ureter suggests recent passage of calculus. Pyelonephritis also offered for clinical consideration. Comment: Preliminary interpretation made by C. No critical discrepancy.
[2021-08-18 21:43] VITALS: BP 111/66; PULSE 110; O2SAT 98
== END 2021-08-18 21:44 | disposition home or self-care (01) ==
LOC: ED 19:03
DX: N10 Acute pyelonephritis (principal); E86.0 Dehydration; M54.50 Low back pain, unspecified; R10.9 Unspecified abdominal pain; Z72.0 Tobacco use; Z79.899 Other long term (current) drug therapy; Z28.310 Unvaccinated for COVID-19
CPT/HCPCS: 36415; 74176; 80053; 81015; 81025; 82150; 83690; 85025; 87077; 87086; 87186; 96374; 96375; 99284; G0480; 80307; J1885; J2405; A9270-GY